=== PATIENT | male | born 1960 | race Caucasian/White ===

== ENCOUNTER 2019-03-13 08:15 | Inpatient (IN) | payer OTHER ==
[~2019-03-13] VITALS: Ht 172.7 cm; Wt 74.8 kg
[2019-03-13] MEDS ORDERED: MIRTAZAPINE15 M1 PO (09:59)
[2019-03-13] MEDS ORDERED: ELAVIL PO (09:59)
[2019-03-13] MEDS ORDERED: CLONAZEPAM0.5 MG PO (10:00)
[2019-03-13] MEDS ORDERED: ZOLOFT100 MG PO (10:00)
[2019-03-13] MEDS ORDERED: RAMIPRIL2.5 MG PO (12:50)
[2019-03-13] MEDS ORDERED: LIPITOR20 MG PO (12:50)
[2019-03-13] MEDS ORDERED: METFORMIN HCL500 MG PO (12:51)
[2019-03-22] MEDS ORDERED: AMITRIPTYLINE H10 MG PO (08:19)
[2019-03-25] MEDS ORDERED: HYOSCYAMINE0.125 M1 SL (12:33)
== END 2019-03-25 13:44 | disposition home or self-care (01) | DRG 333 ==
LOC: ADM 08:15 → O/R 03-22 06:15 → SURH 03-22 06:15 → CIR.AMB 03-22 08:15 → SURH 03-22 08:15 → EDSTATUS 03-22 08:15 → SURH 03-22 13:18
PROVIDERS: ADMIT Surgery
PROC: 07TC4ZZ Resection of Pelvis Lymphatic, Percutaneous Endoscopic Approach (ICD-10-PCS; 2019-03-22)
PROC: 0DTP4ZZ Resection of Rectum, Percutaneous Endoscopic Approach (ICD-10-PCS; principal; 2019-03-22 16:30)
DX: C19 Malignant neoplasm of rectosigmoid junction (principal); Q60.0 Renal agenesis, unilateral; R59.0 Localized enlarged lymph nodes

== ENCOUNTER 2019-03-20 07:25 | Day surgery (SDC) | payer OTHER ==
[~2019-03-20 07:25] MED LIST: CLONAZEPAM0.5 MG PO; ELAVIL PO; LIPITOR20 MG PO; METFORMIN HCL500 MG PO; MIRTAZAPINE15 M1 PO; RAMIPRIL2.5 MG PO; ZOLOFT100 MG PO
== END 2019-03-20 13:25 | disposition home or self-care (01) ==
LOC: AMB-ENDOS 07:25
DX: C19 Malignant neoplasm of rectosigmoid junction (principal); K57.30 Diverticulosis of large intestine without perforation or abscess without bleeding; K64.8 Other hemorrhoids